=== PATIENT | male | born 1985 | race Caucasian/White ===

== ENCOUNTER 2017-11-22 06:07 | Emergency (ER) | payer SELFPAY ==
[~2017-11-22] VITALS: Ht 182.9 cm; Wt 131.8 kg
[~2017-11-22 06:07] MED LIST: Z.0.NO CURRENT MEDS
[2017-11-22 06:09] VITALS: BP 141/90; PULSE 83; RESP 20; TEMP 98.3; O2SAT 98
[2017-11-22] MEDS ORDERED: oxyCODONE/ACETAMINOPHEN 5 MG/325 MG TAB PO ONE (07:15)
[2017-11-22] MEDS ORDERED: TRAM50 PO (07:17)
[2017-11-22] MEDS ORDERED: PENI500T PO (07:17)
--- NOTE | 2017-11-22 07:19 | PD ---
HPI Chief Complaint: Oral / Dental Pain or Problem Time Seen by Provider: 07:03 Travel History International Travel<30 days: No Contact w/Intl Traveler<30days: No Traveled to known affect area: No History of Present Illness HPI Patient is a 32-year-old male presents emergency department with left-sided jaw pain since yesterday. Patient states he has a history of bad teeth secondary to smoking and chronic cavities. He is coming by his father and they are concerned that he might have an infection in his gum or tooth. He has not seen a dentist in years because he has no insurance. Patient denies any chest pain shortness of breath. States he does have some pain with swallowing but is able to swallow easily. No fevers no cough no congestion PFSH Past Medical History Medical History: Denies Significant Hx Diminished Hearing: No Past Surgical History Surgical History: No Previous Surgery Social History Alcohol Use: Yes (OCCASSIONAL) Tobacco Use: Yes (1 PPD) Substance Use: No Allergies-Medications (Allergen,Severity, Reaction): Coded Allergies: No Known Allergies (Verified Adverse Reaction, Unknown, 11/22/17) Reported Meds & Prescriptions Reported Meds & Active Scripts Active Ultram (Tramadol HCl) 50 Mg Tab 50 Mg PO Q8H PRN Penicillin V Potassium 500 Mg Tab 500 Mg PO Q6H 7 Days Review of Systems Except as stated in HPI: all other systems reviewed are Neg Physical Exam Narrative GENERAL: Well-nourished, well-developed patient. SKIN: Focused skin assessment warm/dry. HEAD: Normocephalic. EYES: No scleral icterus. No injection or drainage. . ENT: Patient is no obvious jaw swelling facial swelling or erythema, the neck is supple with no ready erythema, there is no sublingual tenderness and no protrusion of the tongue or elevation of the tongue. Patient easily swallows. Culprit teeth appear to be the second and third molars on the mandibular side on the left. These are eroded down to the gumline, there is no abscess that I can notify along the gumline. There is no swelling along the gumline. There is no mastoid tenderness. TMs are clear bilaterally. NECK: Supple, trachea midline. No JVD or lymphadenopathy. CARDIOVASCULAR: Regular rate and rhythm without murmurs, gallops, or rubs. RESPIRATORY: Breath sounds equal bilaterally. No accessory muscle use. GASTROINTESTINAL: Abdomen soft, non-tender, nondistended. MUSCULOSKELETAL: No cyanosis, or edema. BACK: Nontender without obvious deformity. No CVA tenderness. Data Data Last Documented VS Vital Signs Date Time Temp Pulse Resp B/P (MAP) Pulse Ox O2 Delivery O2 Flow Rate FiO2 11/22/17 06:09 98.3 83 20 141/90 (107) 98 Orders Orders Oxycodone-Acetamin 5-325 Mg (Percocet (11/22/17 07:15) Ed Discharge Order (11/22/17 07:19) [facility] Medical Decision Making Medical Screen Exam Complete: Yes Emergency Medical Condition: Yes Differential Diagnosis Dental caries, Mendez's angina is excluded clinically, dental abscess, apical abscess. Narrative Course Patient room to the emergency department, appears to have uncomplicated dental caries, will place on empiric antibiotics, pain medication discussed need for follow-up with a dentist and smoking cessation as this can lead to many adverse health outcomes. He is stable for discharge at this time Diagnosis Primary Impression: Dental caries Additional Impression: Jaw pain, non-TMJ Additional Instructions: A mandatory referral has been made to oral surgery for you. Please follow up with our patient assistance program. Stop Smoking. Smoking leads to dental problems, heart disease, lung disease. Med/Other Pt SpecificInfo: Prescription(s) given Scripts Tramadol (Ultram) 50 Mg Tab 50 MG PO Q8H Y for PAIN, #20 TAB 0 Refills Prov: Cameron Maravilla MD 11/22/17 Penicillin V Potassium (Penicillin V Potassium) 500 Mg Tab 500 MG PO Q6H for Infection for 7 Days, #28 TAB 0 Refills Prov: Cameron Maravilla MD 11/22/17 Disposition: 01 DISCHARGE HOME Condition: Stable Cameron Maravilla MD November 22, 2017 07:19
== END 2017-11-22 07:57 | disposition home or self-care (01) ==
LOC: NEPC 06:07
DX: K02.9 Dental caries, unspecified (principal); F17.210 Nicotine dependence, cigarettes, uncomplicated
CPT/HCPCS: 99283